=== PATIENT | female | born 1985 | race African-American/Black ===

== ENCOUNTER 2017-04-22 21:07 | Outpatient (CLI) | payer OTHER ==
[~2017-04-22] VITALS: Ht 170.2 cm; Wt 62.8 kg
[2017-04-22 22:17] VITALS: Ht 170.2 cm; Wt 62.8 kg
[2017-04-22 22:18] VITALS: BP 133/75; PULSE 88; RESP 18
[2017-04-22] MEDS ORDERED: PREN-93 PO (22:20)
[2017-04-22] MEDS ORDERED: LACTATED RINGER'S 1,000 ML IV SCH (23:06)
--- NOTE | 2017-04-23 00:04 | RADRPT ---
PROCEDURE: ULTRASOUND BIOPHYSICAL PROFILE CLINICAL INDICATION: 32-year-old female with contractions for viability. TECHNIQUE: Multiple sonographic images were obtained in order to perform a biophysical profile The images were reviewed on a PACS workstation. COMPARISON: None. FINDINGS: There is a single viable intrauterine gestation. There is a vertex presentation. Cardiac activity i s present at 161 beats per minute. The placenta is posterior. The results of the biophysical profil e are as follows: breathing movement = 2/2 Gross body movement = 2/2 tone = 2/2 Qualitative amniotic fluid volume = 2/2 Amniotic fluid index equals 9.5 cm. This yields a biophysical profile score of 8/8. IMPRESSION: Biophysical profile score is 8/8. .Arthur Woodward MD, Date Time Electronically viewed and signed by .Arthur Woodward MD, on 04/23/2017 00:03 .Windy/
--- NOTE | 2017-04-23 00:08 | RADRPT ---
PROCEDURE: ULTRASOUND OBSTETRICAL CLINICAL INDICATION: 32-year-old female with contractions for size and date determination . TECHNIQUE: Multiple sonographic images of the pelvis were obtained. The images were reviewed on a PACS workstation. COMPARISON: Ultrasound biophysical profile obtained concurrently. FINDINGS: The cervix is not well visualized. There is a single viable intrauterine gestation. Cardiac activit y is present with 161 beats per minute. There is a vertex presentation. Measurements were made in or niranjan to determine age. The results are as follows: BPD = 9.06 cm, HC = 32.30 cm, AC = 32.54 cm, FL = 7.17 cm. This yields and estimated gestational ag e of approximately 36 weeks 4 days. The estimated date of delivery is May 24, 2017. The EFW = 296 8 +/- 445 g (6 lb 9 oz). The GP is 53%. The placenta is posterior. There is no evidence for an abruption or placenta previa. IMPRESSION: 1. Single viable intrauterine gestation of approximately 36 weeks 4 days with vertex presentation. 2. The estimated weight is 2968 +/- 445 g (6 lb 9 oz). The GP is 53%. .Arthur Woodward MD, Date Time Electronically viewed and signed by .Arthur Woodward MD, on 04/23/2017 00:08 .Windy/
[2017-04-23 01:51] LABS: ADD SCAN DIFF NO
[2017-04-23 01:55] LABS: BASOPHILS % 0.3 % (0.0-2.0); EOSINOPHILS % 0.3 % (0.0-7.0); HEMATOCRIT 33.3 % (37.0-47.0); HEMOGLOBIN 11.1 g/dl (12.0-16.0); LYMPHOCYTES # 1.8 10^3/ul (0.8-2.9); LYMPHOCYTES % 14.9 % (15.0-51.0); MEAN CORPUSCULAR HGB CONC 33.3 g/dl (32.0-37.0); MEAN CORPUSCULAR VOLUME 86.9 fl (82.0-101.0); MEAN PLATELET VOLUME 11.4 fl (7.4-10.4); MONOCYTE # 0.8 10^3/ul (0.3-0.9); NEUTROPHIL # 8.9 10^3/ul (1.6-7.5); PLATELET COUNT 156 10^3/UL (140-415); RED BLOOD COUNT 3.83 10^6/ul (4.20-5.40); RED CELL DISTRIBUTION WIDTH 13.8 % (11.5-14.5); WHITE BLOOD COUNT 11.8 10^3/ul (4.8-10.8)
[2017-04-23 02:20] LABS: ADD UMIC YES; UR ASCORBIC ACID 40 mg/dL (NEGATIVE); UR BACTERIA FEW /HPF (NONE SEEN); UR BILIRUBIN (Dip) NEGATIVE (NEGATIVE); UR BLOOD (Dip) NEGATIVE (NEGATIVE); UR CLARITY CLOUDY (CLEAR); UR COLOR AMBER (YELLOW); UR GLUCOSE (Dip) NEGATIVE (NEGATIVE); UR KETONES (Dip) NEGATIVE (NEGATIVE); UR LEUKOCYTE ESTERASE (Dip) 3+ Leu/ul (NEGATIVE); UR MUCUS FEW /HPF (NONE SEEN); UR NITRITE (Dip) NEGATIVE (NEGATIVE); UR RBC 2 /HPF (0-5); UR SPECIFIC GRAVITY (Dip) 1.023 (1.003-1.030); UR SQUAMOUS EPITHELIAL CELL FEW /HPF (FEW); UR TOTAL PROTEIN (Dip) NEGATIVE (NEGATIVE); UR UROBILINOGEN (Dip) NEGATIVE (NEGATIVE)
[2017-04-23 02:21] LABS: ALBUMIN 3.8 g/dl (3.3-4.9); ALBUMIN/GLOBULIN RATIO 1.26; CALCIUM 9.3 mg/dl (8.4-10.2); CREATININE 0.52 mg/dl (0.44-1.00); POTASSIUM 3.5 mmol/L (3.5-5.1); TOTAL PROTEIN 6.8 g/dl (6.1-8.1)
== END 2017-04-23 07:34 | disposition home or self-care (01) ==
LOC: OBT 21:07 → L-D 21:07 → OBT 04-23 07:34
PROVIDERS: ATTEND Obstetrics & Gynecology
DX: O26.893 Other specified pregnancy related conditions, third trimester (principal); R10.9 Unspecified abdominal pain; Z3A.36 36 weeks gestation of pregnancy
CPT/HCPCS: 36415; 76815; 76818; 80053; 81001; 85025; 96360; J7120; Z7500; G0463

== ENCOUNTER 2017-05-03 18:57 | Outpatient (CLI) | payer OTHER ==
--- NOTE | 2017-04-23 07:27 | PN ---
Triage Information Date/Time Weeks of Gestation 32 Year-old with SIUP at 36 4/7 wks presents with a chief complaint of decreased FM. She states good movement. She denies nausea, vomiting, shortness of breath, chest pain, headache, visual changes, vaginal bleeding or LOF. Physical Exam: General: Patient appears well, alert and oriented, NAD, appropriate mood and affect ABD: gravid, soft, non-tender. Back: No CVA tenderness (B/L) LE: No clubbing, cyanosis, edema, thigh or calf tenderness bilaterally FHT: 135 bpm , moderate variability with acceleration, no deceleration-category I Contractions: None Speculum exam: No vaginal bleeding or LOF, fibronectin collected SVE: closed/thick/high/ceph/intact membrane : 4 Para: 1 Diabetes: none Hypertention: none Assessment/Plan 32 Year-old with SIUP at 36 4/7 wks with complaint of decreased FM - FHR: No sign of metabolic acidosis- Category I - Continuous EFM, toco - Contractions: None. - Reactive NST. BPP: 10/10 - CBC: nml, U?A with +WBC and LE. Macrobid for 7 days given - Symptoms and sign of labor, preeclampsia, kick count discussed with patient, she voiced understanding. All of her questions answered. - Patient was discharged home in stable condition with the appropriate discharge instructions provided. I would like patient to have close follow-up with her primary physician or outpatient clinic in 1-2 days or return to the ER for worsening symptoms or any other urgent concerns. FERCHO ARREOLA Apr 23, 2017 07:27
[~2017-05-03] VITALS: Ht 170.2 cm; Wt 63.3 kg
[~2017-05-03 18:57] MED LIST: PREN-93 PO
[2017-05-03 19:21] VITALS: Ht 170.2 cm; Wt 63.3 kg
[2017-05-03 19:22] VITALS: BP 105/60; PULSE 84; RESP 18
[2017-05-03] MEDS ORDERED: LACTATED RINGER'S 1,000 ML IV SCH (19:24)
--- NOTE | 2017-05-03 21:56 | TRIAGE ---
OB Triage Datetime Report Generated by CPN: 05/03/2017 21:56 Datetime: 05/03/2017 20:59 Labor Evaluation Frequency: IRRITABILITY NOTED Monitor Mode: External Quality: Mild Pattern: Normal: <= 5 Contractions in 10 Minutes Resting Tone Cromwell: Relaxed Heart Rate FHR Baseline Rate: 125 FHR Baseline Changes: No Baseline Change Variability: Moderate 6-25 bpm Accelerations: 15X15 Decelerations: None Category: Category I Datetime: 05/03/2017 20:00 Labor Evaluation Frequency: 3-7 Monitor Mode: External Duration (sec)2399: 80 Quality: Mild Pattern: Normal: <= 5 Contractions in 10 Minutes Resting Tone Cromwell: Relaxed Heart Rate FHR Baseline Rate: 135 Monitor Mode: External US FHR Baseline Changes: No Baseline Change Variability: Moderate 6-25 bpm Accelerations: 15X15 Decelerations: None Category: Category I Datetime: 05/03/2017 19:50 Vaginal Exam Dilatation (cms): 0.0 Effacement (%): 0 Station: -3 Exam By: DR CARRERA Exam By: Ernie OROZCO RN Vaginal Bleeding: None Cervix, Consistency: Firm Cervix, Position: Posterior Datetime: 05/03/2017 19:17 Stage of : OB Triage Time of Arrival: 05/03/2017 18:50 EGA: 38.1 Arrived By: Wheelchair Arrived From: Home Chief Complaint: CONTRACTIONS/ LEAKING Movement: Present Time Contractions Began: 05/03/2017 15:00 Rupture of Membranes: Unsure Vaginal Bleeding: None (Annotations: Data stored by CPN on behalf of user) Vaginal Discharge: Present Recent Sexual Intercouse: Denies Abdominal Trauma: Not Applicable Patient Complaints: None Time Provider Notified: 05/03/2017 19:50 Provider Notified: DR CARRERA Initial Plan: CALL , EFM Maternal Assessment Level of Consciousness: Fully Conscious DTR's/Clonus: DTRs 2+; No Clonus Headache: Denies Blurred Vision: No Respiratory Effort: Unlabored; Regular Rhythm; Equal Expansion Breath Sounds, Left: Clear and Equal Breath Sounds, Right: Clear and Equal Nausea/Vomiting: Denies RUQ Epigastric Pain: Denies Lower Extremities Edema: None Degree: None Upper Extremities Edema: None Degree: None Facial Edema: None Temperature Route: Oral Fall Risk Assessment History of Falling: (0) No Secondary Diagnosis: (0) No Ambulatory Aid: (0) Bedrest/Nurse Assist IV Therapy: (0) No Gait: (0) Normal/Bedrest/Immobile Mental Status: (0) Oriented to Own Ability Fall Score: 0 Fall Risk Score Definition: No Risk: No action required Monitor Mode: External Monitor Mode: External US Pain Assessment Pain Scale: 5 Pain Presence: Intermittent Pain Type: Contraction Pain Location: Abdomen; Back Datetime: 04/23/2017 02:51 Labor Evaluation Frequency: 0 Monitor Mode: External Heart Rate FHR Baseline Rate: 135 Monitor Mode: External US FHR Baseline Changes: No Baseline Change Variability: Moderate 6-25 bpm Accelerations: 15X15 Decelerations: None Category: Category I Datetime: 04/23/2017 02:32 Stage of : OB Triage Datetime: 04/23/2017 02:00 Labor Evaluation Frequency: 0 Labor Evaluation Frequency: 0 Monitor Mode: External Monitor Mode: External Duration (sec)2399: 0 Pattern: Normal: <= 5 Contractions in 10 Minutes Heart Rate FHR Baseline Rate: 135 Heart Rate FHR Baseline Rate: 135 Monitor Mode: External US Monitor Mode: External US FHR Baseline Changes: No Baseline Change FHR Baseline Changes: No Baseline Change Variability: Moderate 6-25 bpm Variability: Moderate 6-25 bpm Accelerations: 15X15 Decelerations: None Category: Category I Datetime: 04/23/2017 01:00 Labor Evaluation Frequency: IRREGULAR Monitor Mode: External Duration (sec)2399: 100 Quality: Mild Pattern: Normal: <= 5 Contractions in 10 Minutes Resting Tone Cromwell: Relaxed Heart Rate FHR Baseline Rate: 135 Monitor Mode: External US FHR Baseline Changes: No Baseline Change Variability: Moderate 6-25 bpm Accelerations: 15X15 Decelerations: None Category: Category I Datetime: 04/23/2017 00:00 Labor Evaluation Frequency: IRREGULAR Monitor Mode: External Duration (sec)2399: 70 Quality: Mild Pattern: Normal: <= 5 Contractions in 10 Minutes Resting Tone Cromwell: Relaxed Heart Rate FHR Baseline Rate: 125 Monitor Mode: External US FHR Baseline Changes: No Baseline Change Variability: Moderate 6-25 bpm Accelerations: 15X15 Decelerations: None Category: Category I Datetime: 04/22/2017 23:24 Stage of : OB Triage Datetime: 04/22/2017 23:00 Labor Evaluation Frequency: 0 Monitor Mode: External Heart Rate FHR Baseline Rate: 135 Monitor Mode: External US FHR Baseline Changes: No Baseline Change Variability: Moderate 6-25 bpm Accelerations: 15X15 Decelerations: None Category: Category I Datetime: 04/22/2017 22:23 Time of Arrival: 04/22/2017 21:05 EGA: 36.4 Arrived By: Wheelchair Arrived From: Home Chief Complaint: DFM Movement: Decreased Contractions: Denies/Absent Rupture of Membranes: Denies Vaginal Discharge: Denies Recent Sexual Intercouse: Denies Abdominal Trauma: Not Applicable Additional Patient Complaints: EFM, CALL OB Time Provider Notified: 04/22/2017 22:55 Provider Notified: SALCEDA Initial Plan: CALL MD, EFM Datetime: 04/22/2017 22:00 Labor Evaluation Frequency: 0 Monitor Mode: External Heart Rate FHR Baseline Rate: 135 FHR Baseline Changes: No Baseline Change Variability: Moderate 6-25 bpm Accelerations: 15X15 Decelerations: None Category: Category I Datetime: 04/22/2017 21:44 Vaginal Exam Dilatation (cms): 1.0 Effacement (%): 50 Station: -3 Exam By: KARAN Vaginal Bleeding: None Cervix, Consistency: Firm Cervix, Position: Posterior Datetime: 04/22/2017 21:20 Stage of : OB Triage Time of Arrival: 04/22/2017 20:05 Arrived By: Wheelchair Arrived From: Home Chief Complaint: DECREASED MOVEMENT 04/22/17 Movement: Decreased Contractions: Irregular Time Contractions Began: 04/22/2017 07:00 Rupture of Membranes: Denies Vaginal Bleeding: None Vaginal Discharge: Denies Recent Sexual Intercouse: Denies Abdominal Trauma: Not Applicable Patient Complaints: None Time Provider Notified: 04/23/2017 22:55 Provider Notified: DR WRIGHT Initial Plan: CALL JENNIFER MASSEY Maternal Assessment Level of Consciousness: Fully Conscious DTR's/Clonus: DTRs 2+; No Clonus Headache: Denies Blurred Vision: No Respiratory Effort: Unlabored; Regular Rhythm; Equal Expansion Breath Sounds, Left: Clear and Equal Breath Sounds, Right: Clear and Equal Nausea/Vomiting: Denies RUQ Epigastric Pain: Denies Lower Extremities Edema: None Degree: None Upper Extremities Edema: None Degree: None Facial Edema: None Temperature Route: Oral Fall Risk Assessment History of Falling: (0) No Secondary Diagnosis: (0) No Ambulatory Aid: (0) Bedrest/Nurse Assist IV Therapy: (0) No Gait: (0) Normal/Bedrest/Immobile Mental Status: (0) Oriented to Own Ability Fall Score: 0 Fall Risk Score Definition: No Risk: No action required Monitor Mode: External Monitor Mode: External US Pain Assessment Pain Scale: 7 Pain Presence: Intermittent Pain Type: Cramping Pain Location: Abdomen Datetime: 04/22/2017 21:09 Membrane Status: Intact
== END 2017-05-03 21:29 | disposition home or self-care (01) ==
LOC: L-D 18:57 → OBT 18:57
PROVIDERS: ATTEND Obstetrics & Gynecology
DX: O36.8130 Decreased fetal movements, third trimester, not applicable or unspecified (principal); Z3A.36 36 weeks gestation of pregnancy
CPT/HCPCS: 96360; J7120; Z7500; G0463

== ENCOUNTER 2017-05-08 15:39 | Inpatient (IN) | payer OTHER ==
[~2017-05-08] VITALS: Ht 170.2 cm; Wt 64.6 kg
[2017-05-08 16:01] VITALS: BP 102/66; PULSE 88; RESP 20; Ht 170.2 cm; Wt 64.6 kg
[2017-05-08] MEDS ORDERED: METHYLERGONOVINE 0.2 MG INJ IM PRN (18:00)
[2017-05-08] MEDS ORDERED: OXYTOCIN 30 UNITS/LR 500 ML IV SCH (18:00)
[2017-05-08] MEDS ORDERED: CEFAZOLIN 2 GM/50 ML (PMX) 50 ML IV SCH (18:00)
[2017-05-08] MEDS ORDERED: CARBOPROST 250 MCG INJ IM PRN (18:00)
[2017-05-08] MEDS ORDERED: MISOPROSTOL 200 MCG TAB PR PRN (18:00)
[2017-05-08] MEDS ORDERED: OXYTOCIN 30 UNITS/LR 500 ML IV PRN (18:00)
[2017-05-08] MEDS: LACTATED RINGER'S 1,000 ML IV SCH ×2 (18:02→18:49)
[2017-05-08 18:25] LABS: BASOPHILS % 0.2 % (0.0-2.0); EOSINOPHILS # 0.1 10^3/ul (0.0-0.5); EOSINOPHILS % 0.6 % (0.0-7.0); HEMATOCRIT 34.5 % (37.0-47.0); HEMOGLOBIN 11.4 g/dl (12.0-16.0); LYMPHOCYTES # 1.4 10^3/ul (0.8-2.9); MEAN CORPUSCULAR HEMOGLOBIN 29.1 pg (29.0-33.0); MEAN PLATELET VOLUME 12.3 fl (7.4-10.4); MONOCYTE # 0.9 10^3/ul (0.3-0.9); MONOCYTES % 6.8 % (0.0-11.0); NEUTROPHILS % 80.4 % (39.0-77.0); PLATELET COUNT 171 10^3/UL (140-415); RED BLOOD COUNT 3.92 10^6/ul (4.20-5.40); RED CELL DISTRIBUTION WIDTH 14.3 % (11.5-14.5); WHITE BLOOD COUNT 12.5 10^3/ul (4.8-10.8)
[2017-05-08 18:26] LABS: ADD SCAN DIFF NO
--- NOTE | 2017-05-08 18:26 | TRIAGE ---
OB Triage Datetime Report Generated by CPN: 05/08/2017 18:26 Datetime: 05/08/2017 18:22 Assessment Type: Admission Assessment Datetime: 05/08/2017 18:18 Assessment Type: Admission Assessment Vaginal Bleeding: None Maternal Assessment Level of Consciousness: Fully Conscious Headache: Denies Blurred Vision: No Respiratory Effort: Unlabored; Regular Rhythm; Equal Expansion Breath Sounds, Left: Clear and Equal Breath Sounds, Right: Clear and Equal Nausea/Vomiting: Denies RUQ Epigastric Pain: Denies Lower Extremities Edema: None Degree: None Upper Extremities Edema: None Degree: None Facial Edema: None Fall Risk Assessment History of Falling: (0) No Secondary Diagnosis: (0) No Ambulatory Aid: (0) Bedrest/Nurse Assist IV Therapy: (20) Yes (Annotations: INFUSING LR) Gait: (0) Normal/Bedrest/Immobile Mental Status: (0) Oriented to Own Ability Fall Score: 20 Fall Risk Score Definition: No Risk: No action required Pain Assessment Pain Scale: 10 Pain Presence: Intermittent (Annotations: PT FEELS RARE CONTRACTIONS) Pain Type: Contraction Pain Location: Abdomen Datetime: 05/08/2017 17:19 Assessment Type: Admission Assessment Datetime: 05/08/2017 16:00 Assessment Type: Triage Time of Arrival: 05/08/2017 15:37 EGA: 38.6 Arrived By: Wheelchair Arrived From: Home Chief Complaint: CONTRACTIONS SINCE SATURDAY Movement: Present Rupture of Membranes: Denies Vaginal Discharge: Denies Recent Sexual Intercouse: Yes Abdominal Trauma: Not Applicable Patient Complaints: Contractions Time Provider Notified: 05/08/2017 17:00 Provider Notified: DR. CARRERA Initial Plan: EFM, VAGINAL EXAM Maternal Assessment Level of Consciousness: Fully Conscious DTR's/Clonus: DTRs 2+; No Clonus Headache: Denies Blurred Vision: No Respiratory Effort: Unlabored; Regular Rhythm; Equal Expansion Nausea/Vomiting: Denies RUQ Epigastric Pain: Denies Lower Extremities Edema: None Degree: None Upper Extremities Edema: None Degree: None Facial Edema: None Fall Risk Assessment History of Falling: (0) No Secondary Diagnosis: (0) No Ambulatory Aid: (0) Bedrest/Nurse Assist IV Therapy: (0) No Gait: (0) Normal/Bedrest/Immobile Mental Status: (0) Oriented to Own Ability Fall Score: 0 Fall Risk Score Definition: No Risk: No action required Datetime: 05/08/2017 15:57 Labor Evaluation Monitor Mode: External Heart Rate Monitor Mode: External US Pain Assessment Pain Scale: 10 Pain Presence: Intermittent Pain Type: Contraction Pain Location: Abdomen; Back Pain Goal: 0 Datetime: 05/03/2017 21:29 Arrived From: Home Datetime: 05/03/2017 19:17 EGA: 38.1 Fall Score: 0 Fall Risk Score Definition: No Risk: No action required Datetime: 04/22/2017 22:23 EGA: 36.4 Datetime: 04/22/2017 21:20 Fall Score: 0 Fall Risk Score Definition: No Risk: No action required
[2017-05-08 18:54] LABS: INR 0.94; PARTIAL THROMBOPLASTIN TIME 25.9 Sec (25.0-35.0); PROTIME 12.6 Sec (12.2-14.2)
[2017-05-08] MEDS ORDERED: ONDANSETRON 4 MG INJ ONE (19:30)
[2017-05-08] MEDS ORDERED: CITRIC ACID/NA CITRATE 30 ML CUP ONE (19:30)
[2017-05-08] MEDS ORDERED: PHENYLephrine (100 MCG/ML) 5ML SYG ONE (19:58)
[2017-05-08] MEDS ORDERED: OXYTOCIN 10 UNIT INJ ONE (19:58)
[2017-05-08] MEDS ORDERED: morphine SULFATE/PF (10 MG/10 ML) INJ ONE (19:58)
[2017-05-08] MEDS ORDERED: CITRIC ACID/NA CITRATE 30 ML CUP PO ONE (20:00)
[2017-05-08] MEDS ORDERED: ONDANSETRON 4 MG INJ IV ONE (20:00)
[2017-05-08] MEDS ORDERED: METOCLOPRAMIDE 10 MG INJ ONE (20:05)
[2017-05-08] MEDS ORDERED: DEXAMETHASONE 4 MG/ML 1 ML INJ ONE (20:05)
[2017-05-08] MEDS ORDERED: KETOROLAC 30 MG INJ ONE (20:05)
[2017-05-08] MEDS ORDERED: morphine 4 MG/ML VIAL IV PRN (20:30)
[2017-05-08] MEDS ORDERED: ONDANSETRON 4 MG INJ IV PRN (20:30)
[2017-05-08] MEDS ORDERED: DIPHENHYDRAMINE 50 MG INJ IV PRN (20:30)
[2017-05-08] MEDS ORDERED: NALOXONE (0.4 MG/ML) INJ IV PRN (20:30)
[2017-05-08] MEDS ORDERED: HYDROmorphONE 1 MG/ML SYG IV PRN ×2 (20:30)
[2017-05-08] MEDS ORDERED: morphine 2 MG INJ IV PRN (20:30)
[2017-05-08] MEDS ORDERED: NALBUPHINE HCL (10 MG/1 ML) INJ IV PRN (20:30)
[2017-05-08] MEDS ORDERED: ACETAMINOPHEN 500 MG TAB PO PRN (20:30)
[2017-05-08] MEDS: KETOROLAC 30 MG INJ IV PRN (21:55)
[2017-05-08 23:30] VITALS: BP 123/74; PULSE 67; RESP 18
[2017-05-09] VITALS: BP 121/92; PULSE 92; RESP 18
--- NOTE | 2017-05-09 01:41 | OPPN ---
Date/Time of Note Date/Time of Note DATE: 05/09/17 TIME: 01:41 Post-Anesthesia Notes Post-Anesthesia Note Last documented vital signs Vital Signs Date Time Temp Pulse Resp B/P Pulse Ox O2 Delivery O2 Flow Rate FiO2 05/08/17 16:01 97.3 88 20 102/66 Room Air Activity: WNL Respiratory function: WNL Cardiovascular function: WNL Mental status: Baseline Pain reasonably controlled: Yes Hydration appropriate: Yes Nausea/Vomiting absent: Yes CHER RAGLAND MD May 09, 2017 01:41
[2017-05-09] MEDS ORDERED: METHYLERGONOVINE 0.2 MG TAB PO PRN (02:00)
[2017-05-09] MEDS ORDERED: OXYTOCIN 30 UNITS/LR 500 ML IV PRN (02:00)
[2017-05-09] MEDS ORDERED: CEFAZOLIN 1 GM/50 ML (PMX) 50 ML IV ONE (02:00)
[2017-05-09] MEDS ORDERED: LANOLIN 7 GM TUBE TOP PRN (02:00)
[2017-05-09] MEDS ORDERED: METHYLERGONOVINE 0.2 MG INJ IM PRN (02:00)
[2017-05-09] MEDS ORDERED: MISOPROSTOL 200 MCG TAB PR PRN (02:00)
[2017-05-09] MEDS ORDERED: CARBOPROST 250 MCG INJ IM PRN (02:00)
[2017-05-09] MEDS: OXYTOCIN 30 UNITS/LR 500 ML IV SCH ×2 (02:08→06:39)
[2017-05-09 03:54] LABS: OPIATES Negative (NEGATIVE)
[2017-05-09 04:00] VITALS: BP 119/65; PULSE 76; RESP 18
[2017-05-09 04:01] LABS: BARBITURATES Negative (NEGATIVE); BENZODIAZEPINES Negative (NEGATIVE); CANNABINOIDS Negative (NEGATIVE); COCAINE Negative (NEGATIVE)
[2017-05-09 07:54] VITALS: BP 112/55; PULSE 80; RESP 18
[2017-05-09] MEDS: SENNA/DOCUSATE NA (8.6MG/50MG) TAB PO SCH ×2 (09:05→20:55)
[2017-05-09] MEDS: KETOROLAC 30 MG INJ IV PRN (09:40)
[2017-05-09 09:56] LABS: ADD SCAN DIFF NO
[2017-05-09 09:59] LABS: BASOPHIL # 0.1 10^3/ul (0.0-0.1); BASOPHILS % 0.3 % (0.0-2.0); HEMATOCRIT 34.6 % (37.0-47.0); HEMOGLOBIN 11.5 g/dl (12.0-16.0); LYMPHOCYTES # 1.6 10^3/ul (0.8-2.9); MEAN CORPUSCULAR HEMOGLOBIN 28.7 pg (29.0-33.0); MEAN CORPUSCULAR HGB CONC 33.2 g/dl (32.0-37.0); MEAN CORPUSCULAR VOLUME 86.3 fl (82.0-101.0); MEAN PLATELET VOLUME 12.4 fl (7.4-10.4); NEUTROPHIL # 14.5 10^3/ul (1.6-7.5); NEUTROPHILS % 83.9 % (39.0-77.0); PLATELET COUNT 160 10^3/UL (140-415); RED BLOOD COUNT 4.01 10^6/ul (4.20-5.40); WHITE BLOOD COUNT 17.3 10^3/ul (4.8-10.8)
--- NOTE | 2017-05-09 12:56 | PREOPHP ---
DATE OF ADMISSION: 05/08/2017 HISTORY OF PRESENT ILLNESS: This is a 32-year-old lady, II, para I, EDC 05/16/2017 at 38 and 6/7 weeks. Admitted to labor and delivery area in labor. She had care at my [place] office, and the care was uneventful. She has had one previous . She is for repeat . PAST MEDICAL HISTORY: No history of diabetes, TB, asthma. ALLERGIES: NO HISTORY OF ALLERGY. SOCIAL HISTORY: The patient does not smoke, she does not drink, she does not take any drugs, except for iron and vitamins. She had menarche at age of 9, every 28 days interval, 3 to 4 days duration and moderate amount. FAMILY HISTORY: Noncontributory. OB/GYNE HISTORY: She is II, para I. Her first delivery was in 2008 by . REVIEW OF SYSTEMS: CARDIOVASCULAR: No chest pain. RESPIRATORY: No cough. GASTROINTESTINAL: No diarrhea, no vomiting. GENITOURINARY: No dysuria. PHYSICAL EXAMINATION: GENERAL: Reveals a conscious, coherent lady in no acute distress. VITAL SIGNS: Blood pressure is 120/80, pulse rate 80 per minute, respirations 16 per minute. BREASTS: Within normal limits. HEART: Within normal limits. LUNGS: Within normal limits. ABDOMEN: Term size uterus. Estimated weight 7 pounds. heart tones are 140 per minute. PELVIC: Exam revealed the cervix to be 3 to 4 cm dilated, 100 percent effaced. Station floating, in cephalic presentation with bag of water intact. EXTREMITIES: No pedal edema. ADMITTING DIAGNOSIS: A 38-6/7th weeks intrauterine in labor with 1 previous section. The patient was planned to have repeat section. PLAN: The procedure was explained to the patient, she understood everything totally. The risks, benefits, and alternatives were discussed with the patient as well. Dictated By: Delmi Ramos MD /[email or web address] /Document#: [id number] CC: Delmi Ramos MD;*EndCC*
[2017-05-09 15:41] LABS: CREATININE 0.59 mg/dl (0.44-1.00); POTASSIUM 3.8 mmol/L (3.5-5.1)
[2017-05-09 16:09] VITALS: BP 116/73; PULSE 86; RESP 18
[2017-05-09] MEDS: LACTATED RINGER'S 1,000 ML IV SCH ×2 (19:37→19:38)
[2017-05-09] MEDS ORDERED: ACETAMINOPHEN/CODEINE #3 TAB PO PRN ×2 (19:58)
[2017-05-09] MEDS ORDERED: OXYCODONE/ACETAMINOPHEN (5/325) TAB PO PRN (19:58)
[2017-05-09 20:00] VITALS: BP 121/77; PULSE 78; RESP 19
[2017-05-09] MEDS: IBUPROFEN 800 MG TAB PO SCH (21:17)
[2017-05-10] MEDS: LACTATED RINGER'S 1,000 ML IV SCH ×3 (01:44→16:32)
[2017-05-10] MEDS: HYDROmorphONE 2 MG TAB PO PRN (02:34)
[2017-05-10 03:50] VITALS: BP 116/71; PULSE 78; RESP 19
[2017-05-10] MEDS: IBUPROFEN 800 MG TAB PO SCH ×3 (05:30→20:33)
[2017-05-10 08:20] VITALS: BP 140/70; PULSE 77; RESP 20
[2017-05-10] MEDS: SENNA/DOCUSATE NA (8.6MG/50MG) TAB PO SCH ×2 (09:14→21:00)
[2017-05-10] MEDS ORDERED: BISACODYL 10 MG SUPP PR ONE ×2 (10:30→19:00)
[2017-05-10] MEDS ORDERED: MAGNESIUM HYDROXIDE 30ML CUP PO ONE (10:30)
[2017-05-10 20:25] VITALS: BP 144/76; PULSE 75; RESP 19
[2017-05-11 04:00] VITALS: BP 128/82; PULSE 75; RESP 19
[2017-05-11] MEDS: IBUPROFEN 800 MG TAB PO SCH ×2 (04:02→11:37)
[2017-05-11] MEDS: HYDROmorphONE 2 MG TAB PO PRN (05:33)
[2017-05-11] MEDS: LACTATED RINGER'S 1,000 ML IV SCH (06:09)
[2017-05-11 07:37] LABS: ADD SCAN DIFF NO
[2017-05-11 07:43] LABS: BASOPHILS % 0.2 % (0.0-2.0); EOSINOPHILS # 0.1 10^3/ul (0.0-0.5); EOSINOPHILS % 0.7 % (0.0-7.0); HEMATOCRIT 34.2 % (37.0-47.0); HEMOGLOBIN 11.2 g/dl (12.0-16.0); LYMPHOCYTES # 1.3 10^3/ul (0.8-2.9); LYMPHOCYTES % 10.2 % (15.0-51.0); MEAN CORPUSCULAR HEMOGLOBIN 28.7 pg (29.0-33.0); MEAN CORPUSCULAR HGB CONC 32.7 g/dl (32.0-37.0); MEAN CORPUSCULAR VOLUME 87.7 fl (82.0-101.0); MEAN PLATELET VOLUME 12.1 fl (7.4-10.4); MONOCYTE # 0.9 10^3/ul (0.3-0.9); MONOCYTES % 7.3 % (0.0-11.0); NEUTROPHIL # 10.5 10^3/ul (1.6-7.5); PLATELET COUNT 168 10^3/UL (140-415); RED CELL DISTRIBUTION WIDTH 14.2 % (11.5-14.5); WHITE BLOOD COUNT 12.9 10^3/ul (4.8-10.8)
[2017-05-11 08:10] VITALS: BP 121/74; PULSE 67; RESP 18
[2017-05-11] MEDS ORDERED: MEASLES,MUMPS,RUBELLA VACCINE INJ SC* ONE (09:00)
[2017-05-11] MEDS ORDERED: DIPHTH/TET/ACEL PERTUSS (ADULT) 0.5 ML VIAL IM* ONE (09:00)
[2017-05-11] MEDS: SENNA/DOCUSATE NA (8.6MG/50MG) TAB PO SCH (09:35)
--- NOTE | 2017-05-16 10:48 | OPR ---
DATE OF OPERATION: 05/08/2017 PREOPERATIVE DIAGNOSIS: A 38-6/7 week intrauterine in labor with previous section. POSTOPERATIVE DIAGNOSIS: A 38-6/7 week intrauterine in labor with previous section. OPERATION PERFORMED: Repeat low transverse section. SURGEON: Delmi Ramos MD ANESTHESIA: Spinal. DESCRIPTION OF PROCEDURE: Under spinal anesthesia the patient was prepped and draped in the usual fashion for abdominal surgery. After checking for the effects of anesthesia, the previous Pfannenstiel scar was incised and a 10 cm skin incision was performed. The incision was carried from the skin up to the fascia. Upon opening the skin up to the fascia, small blood vessels were noted to be oozing and these were all cauterized. The fascia was opened transversely following by slitting the muscles vertical and the peritoneum vertically. Upon opening the abdominal cavity, the bladder blade was put in place. A small brody was performed from the cervix up to the endometrium, and then over the uterine segment and then it was carried sideways with the aid of my 2 fingers. A pen was inserted on the lower segment of the uterus and the bag of water was ruptured. Clear fluid was noted. The baby's head was delivered. The baby's was witnessed after amniotic fluid. The anterior shoulder, posterior shoulder and the rest of the body of the baby was delivered. The cord was clamped after 30 seconds, then the baby was handed to the nursery nurse. The placenta was delivered manually and complete. The uterus was exteriorized. The uterus was cleansed with wet lap sponge to make sure that no membranes were left behind. After correct sponge count, the uterus was closed in the usual fashion using 1 chromic for the first layer. Continuous locking suture was used, followed by 1 chromic for the second layer. Imbricating sutures were used. Bleeders were checked and there was no bleeding noted. After checking for bleeders and there were none, both tubes and ovaries were inspected. They were healthy looking. The back of the uterus was checked for any hematoma and there was none noted. Then the uterus was put back into the pelvic cavity. Once again, both tubes and ovaries were inspected and were healthy looking. Once again after the uterine incision was checked for any bleeding and there was no bleeding noted. After correct sponge count, needle count and instrument count as confirmed by the central service tech and circulating nurse, the abdomen was closed in the usual fashion using 0 Vicryl for the peritoneum, 0 Vicryl for the muscles, for the fascia 0 Vicryl continuous stitch was used followed by a few figure-of-8 sutures. The subcutaneous tissue was closed with 3-0 Vicryl and the skin was closed with 3-0 Vicryl subcuticular suture used. The patient tolerated the procedure well. Estimated blood loss about 600 mL. Vital signs were stable during and after the procedure. She delivered a healthy baby girl with Apgars 9 and 9 at 2016 hours on 05/08/2017, 2790 grams, 6 pounds 2 ounces, 19 inches long. Dictated By: Delmi Ramos MD /[email or web address] /Document#: [id number]
== END 2017-05-11 17:17 | disposition home or self-care (01) | DRG 766 ==
LOC: OBT 15:39 → L-D 15:43 → OBT 17:00 → L-D 19:43 → PP1 23:31
PROVIDERS: ADMIT Obstetrics & Gynecology; ATTEND Obstetrics & Gynecology
PROC: 10D00Z1 Extraction of Products of Conception, Low, Open Approach (ICD-10-PCS; principal; 2017-05-09)
DX: O34.211 Maternal care for low transverse scar from previous cesarean delivery (principal); Z37.0 Single live birth; Z3A.38 38 weeks gestation of pregnancy
CPT/HCPCS: 80048; 80307; 85025; 85610; 85730; 86592; 86850; 86900; 86901; 87340; 90715; 94760; 99464; G0463; J0690; J1100; J1170; J1885; J2274; J2370; J2405; J2590; J2765; J7120